=== PATIENT | female | born 1970 | race Two or more races ===

== ENCOUNTER 2017-11-18 13:20 | Emergency (ER) | payer OTHER ==
[2017-11-18 15:28] LABS: ABS Basophils 0 10^3/ul (0-0.2); ABS Eosinophils 0.1 10^3/ul (0-0.6); ABS Lymphocytes 1.9 10^3/ul (1.0-4.8); ABS Monocytes 0.3 10^3/ul (0-0.8); ABS Neutrophils 2.9 10^3/ul (1.5-7.7); ABS Nucleated RBC 0 10^3/ul; Hematocrit 40 % (35-47); Hemoglobin 13.2 g/dl (12.0-16.0); Lymphocyte % 37.1 % (25-47); Mean Corpuscular HGB Conc 33 g/dl (31-36); Mean Corpuscular Hemoglobin 30 pg (27-31); Mean Corpuscular Volume 90 fL (80-97); Mean Platelet Volume 8 um3 (7.4-10.4); Nucleated Red Blood Cells % 0; Platelet Count 224 10^3/ul (150-450); Red Cell Distribution Width 14 % (10.5-15); White Blood Count 5.2 10^3/ul (3.5-10.8)
--- NOTE | 2017-11-18 15:28 | RAD ---
HISTORY: Chest pain COMPARISONS: July 03, 2014 VIEWS: 4: Frontal dual-energy and lateral views of the chest. FINDINGS: CARDIOMEDIASTINAL SILHOUETTE: The cardiomediastinal silhouette is normal. KAYLYN: The kaylyn are normal. PLEURA: The costophrenic angles are sharp. No pleural abnormalities are noted. LUNG PARENCHYMA: The lungs are clear. ABDOMEN: The upper abdomen is clear. There is no subphrenic gas. BONES AND SOFT TISSUES: No bone or soft tissue abnormalities are noted. OTHER: None. IMPRESSION: NO ACTIVE CARDIOPULMONARY DISEASE.
[2017-11-18 15:44] LABS: EGFR Non-African American 107.2 (>60)
[2017-11-18 17:03] VITALS: BP 136/69
--- NOTE | 2017-11-25 09:20 | ED ---
Headache - HPI Summary HPI Summary: Patient presents to the ED with a multitude of complaints. She endorses headache to the right parietal area, unsure when it began and rated a 7 out of 10 in severity. Intermittent, not aggravated by lites are sounds. She also endorses back pain, right knee pain, although denies injury. She states she has had a chest cold for approximately 3 months and endorses cough without production. She was placed on antibiotics twice, doxycycline in July for a chest cold and associated tick bite, but she did not finish the course of antibiotics because of upset stomach side effects. She was also placed on another antibiotic, although she is unsure of the name, and discontinued this medication as it made her start snoring. She states she feels like her throat closes up if she lies flat and when she snores. She denies any allergies. - History Of Current Complaint Chief Complaint: EDHeadache Stated Complaint: HEADACHES Time Seen by Provider: 11/18/17 13:30 Hx Obtained From: Patient Onset/Duration: Gradual Onset Initially Headache Was: Initial Pain Scale(0-10)= Currently Pain Is: Current Pain Scale(0-10)= Timing: Constant Character: Throbbing Aggravating Factor: Nothing Allevating Factors: Nothing Associated Signs And Symptoms: Dizziness - Risk Factors SAH Risk Factors: Negative Meningitis Risk Factors: Negative SDH Risk Factors: Negative Temporal Arteritis Risk Factors: Female - Allergies/Home Medications Allergies/Adverse Reactions: Allergies Allergy/AdvReac Type Severity Reaction Status Date / Time No Known Allergies Allergy Verified 11/18/17 13:24 PMH/Surg Hx/FS Hx/Imm Hx Previously Healthy: Yes Endocrine/Hematology History: Denies: Hx Diabetes, Hx Anemia Cardiovascular History: Reports: Hx Angina Denies: Hx Congestive Heart Failure, Hx Hypertension, Hx Pacemaker/ICD Respiratory History: Denies: Hx Asthma GI History: Denies: Hx Jaundice History: Denies: Hx Renal Disease Sensory History: Denies: Hx Hearing Aid Neurological History: Denies: Other Neuro Impairments/Disorders Psychiatric History: Denies: Hx Panic Disorder - Cancer History Hx Chemotherapy: No Hx Radiation Therapy: No - Surgical History Surgery Procedure, Year, and Place: c section, [facility], [facility] Infectious Disease History: No Infectious Disease History: Denies: Traveled Outside the [place] in Last 30 Days - Social History Occupation: Employed Full-time Lives: With Family Alcohol Use: Occasionally Hx Substance Use: No Substance Use Type: Reports: None Hx Tobacco Use: No Smoking Status (MU): Never Smoked Tobacco Do You Chew or Dip Tobacco: No Review of Systems Negative: Fever, Chills, Fatigue, Skin Diaphoresis Negative: Photophobia, Blurred Vision Cardiovascular: Negative Respiratory: Negative Genitourinary: Negative Positive: no symptoms reported, see HPI Positive: Arthralgia - 8 knee Positive: Headache All Other Systems Reviewed And Are Negative: Yes Physical Exam Triage Information Reviewed: Yes Vital Signs On Initial Exam: Initial Vitals Temp Pulse Resp BP Pulse Ox 97.3 F 60 16 120/42 97 11/18/17 13:24 11/18/17 13:24 11/18/17 13:24 11/18/17 13:24 11/18/17 13:24 Vital Signs Reviewed: Yes Appearance: Positive: Well-Appearing, No Pain Distress, Well-Nourished Skin: Positive: Warm, Skin Color Reflects Adequate Perfusion Head/Face: Positive: Normal Head/Face Inspection Eyes: Positive: EOMI, JUAN, Conjunctiva Clear Neck: Positive: Supple, No Lymphadenopathy Respiratory/Lung Sounds: Positive: Clear to Auscultation, Breath Sounds Present Cardiovascular: Positive: RRR, Pulses are Symmetrical in both Upper and Lower Extremities Musculoskeletal: Positive: Normal, Strength/ROM Intact Neurological: Positive: Speech Normal Psychiatric: Positive: Normal, Affect/Mood Appropriate AVPU Assessment: Alert Diagnostics - Vital Signs Vital Signs Temp Pulse Resp BP Pulse Ox 11/18/17 17:02 97.3 F 64 16 136/69 99 11/18/17 16:28 62 15 131/68 99 11/18/17 13:24 97.3 F 60 16 120/42 97 - Laboratory Lab Results: Lab Results 11/18/17 11/18/17 11/18/17 Range/Units 15:19 15:19 15:19 WBC 5.2 (3.5-10.8) 10^3/ul RBC 4.40 (4.0-5.4) 10^6/ul Hgb 13.2 (12.0-16.0) g/dl Hct 40 (35-47) % MCV 90 (80-97) fL MCH 30 (27-31) pg MCHC 33 (31-36) g/dl RDW 14 (10.5-15) % Plt Count 224 (150-450) 10^3/ul MPV 8 (7.4-10.4) um3 Neut % (Auto) 56.3 (38-83) % Lymph % (Auto) 37.1 (25-47) % [place] % (Auto) 5.2 (0-7) % Eos % (Auto) 1.0 (0-6) % Baso % (Auto) 0.4 (0-2) % Absolute Neuts (auto) 2.9 (1.5-7.7) 10^3/ul Absolute Lymphs (auto) 1.9 (1.0-4.8) 10^3/ul Absolute Monos (auto) 0.3 (0-0.8) 10^3/ul Absolute Eos (auto) 0.1 (0-0.6) 10^3/ul Absolute Basos (auto) 0 (0-0.2) 10^3/ul Absolute Nucleated RBC 0 10^3/ul Nucleated RBC % 0 ESR 29 H (0-14) mm/Hr Sodium 138 (133-145) mmol/L Potassium 3.8 (3.5-5.0) mmol/L Chloride 102 (101-111) mmol/L Carbon Dioxide 31 (22-32) mmol/L Anion Gap 5 (2-11) mmol/L BUN 12 (6-24) mg/dL Creatinine 0.60 (0.51-0.95) mg/dL Est GFR ( Amer) 137.8 (>60) Est GFR (Non-Af Amer) 107.2 (>60) BUN/Creatinine Ratio 20.0 (8-20) Glucose 91 (70-100) mg/dL Calcium 9.8 (8.6-10.3) mg/dL Total Bilirubin 0.30 (0.2-1.0) mg/dL AST 27 (13-39) U/L ALT 41 (7-52) U/L Alkaline Phosphatase 58 (34-104) U/L Troponin I 0.00 (<0.04) ng/mL C-Reactive Protein 1.61 (< 5.00) mg/L Total Protein 8.0 (6.4-8.9) g/dL Albumin 4.7 (3.2-5.2) g/dL Globulin 3.3 (2-4) g/dL Albumin/Globulin Ratio 1.4 (1-3) TSH 1.76 (0.34-5.60) mcIU/mL Thyroxine (T4) 8.30 (6.09-12.23) mcg/mL B. burgdorferi (PCR) Negative (Negative) Lyme DNA Comment See comment B.garinii/afzelii PCR Negative (Negative) B. mayonii (PCR) Negative (Negative) Result Diagrams: 11/18/17 15:19 11/18/17 15:19 Lab Statement: Any lab studies that have been ordered have been reviewed, and results considered in the medical decision making process. Headache Course/Dx - Course Course Of Treatment: Patient arrives with a multitude of complaints. Chest x- ray obtained due to chest cold recently, this shows no active cardiopulmonary findings. I did not obtain x-rays of the knee as there was no injury and I see no effusion, erythema, warmth or other signs of infection. She appears well and vital signs are stable. I have encouraged her to follow up with her PCP regarding her multitude of complaints. Labs obtained which show an elevated ESR , but otherwise normal. She has asked about Lyme disease. I have agreed to test her for this and we will call for any positive results. She is okay with this plan and discharge at this time. - Diagnoses Provider Diagnoses: Headache Discharge - Discharge Plan Condition: Stable Disposition: HOME Referrals: Asaf Lin MD [Medical Doctor] - Asuncion EARL,Bryn Lauren [Medical Doctor] - Michael Kay MD [Medical Doctor] - Gonzales Jang MD [Primary Care Provider] - Additional Instructions: Please follow-up with Dr. Kay for your sleep study and further evaluation of snoring symptoms Please follow-up with Dr. lin for any questions regarding your Tyler's I have given you a referral to infectious disease, Dr. Roland for possible Lyme
== END 2017-11-18 17:02 | disposition home or self-care (01) ==
LOC: ED 13:20
DX: R42 Dizziness and giddiness (principal); R51 Headache
CPT/HCPCS: 36415; 71046; 80053; 84436; 84443; 84484; 85025; 85652; 86140; 87798; 99282

== ENCOUNTER 2017-12-04 09:18 | Emergency (ER) | payer OTHER ==
[2017-12-04 09:44] VITALS: BP 122/65
--- NOTE | 2017-12-04 10:44 | RAD ---
INDICATION: Right knee pain. TECHNIQUE: 4 views of the right knee were obtained. FINDINGS: The bones are in normal alignment. No joint effusion or fracture is seen. Joint spaces appear maintained. IMPRESSION: NEGATIVE EXAM.
--- NOTE | 2017-12-04 11:25 | UC ---
Joe Gabriel Jennifer, scribed for Matt Sr MD on 12/04/17 at 1102 . Lower Extremity/Ankle HPI - HPI Summary HPI Summary: In Room:The patient is a 47 year old female who complains of knee pain for the past 13 months that worsened yesterday. The patient is diagnosed with osteoarthritis. She states that it always hurts to walk but yesterday, the pain extended from the back to the front so that it now wraps around the entire right knee. She states sitting alleviates the pain but standing or walking aggravates it. The patient additionally reports that she has recently been feeling pressure in her chest, like something is stuck in her throat, continuous lightheadedness or fogginess, difficulty understanding people, difficulty sleeping, and a heavy discharge that was yellow-green. The patient was taking antibiotics for her Lyme disease and reports she previously had heavy discharge when she was on antibiotics. She denies cough, nausea, vomiting , diarrhea, and rash. Note: Vital signs stable. Has knee pain for 13 months. Diagnosed with osteoarthritis. Reports of worsening pain yesterday. 8/10 pain. The patient is on Synthroid, Elavil, and Meloxicam for pain. Visit history non-contributory except as previously noted. Nurse Note: chronic right knee pain flared yesterday unable to get pain under control - History of Current Complaint Chief Complaint: UCLowerExtremity Stated Complaint: KNEE PAIN Time Seen by Provider: 12/04/17 10:12 Hx Obtained From: Patient Hx Last Menstrual Period: iud Onset/Duration: Gradual Onset, Worse Since - yesterday, Other - 13 months Severity Initially: Severe Severity Currently: Severe Pain Intensity: 9 Pain Scale Used: 0-10 Numeric Aggravating Factor(s): Standing, Ambulation Alleviating Factor(s): Rest Able to Bear Weight: No - Allergies/Home Medications Allergies/Adverse Reactions: Allergies Allergy/AdvReac Type Severity Reaction Status Date / Time No Known Allergies Allergy Verified 12/04/17 09:25 Home Medications: Home Medications Amitriptyline TAB* [Elavil TAB*] 10 mg PO DAILY WITH MEAL 12/04/17 [History Confirmed 12/04/17] Meloxicam 7.5 mg PO DAILY 12/04/17 [History Confirmed 12/04/17] PMH/Surg Hx/FS Hx/Imm Hx Previously Healthy: No - Tyler, Sjogren's, Lyme disease - Surgical History Surgical History: Yes Surgery Procedure, Year, and Place: c section, [place], [facility], [facility]RO[facility] REMOVED FROM RT BREAST IN TWENTIES - Family History Known Family History: Positive: Other - Osteopenia - mother - Social History Occupation: Employed Full-time Alcohol Use: Occasionally Substance Use Type: None Smoking Status (MU): Never Smoked Tobacco Review of Systems Skin: Negative - rash Respiratory: Negative - Cough Gastrointestinal: Negative - Nausea, vomiting, diarrhea Genitourinary: Vaginal/Penile Discharge Musculoskeletal: Other: - Right knee pain Neurological: Other - lightheadedness, "fogginess", difficulty understanding people, difficulty sleeping All Other Systems Reviewed And Are Negative: Yes Physical Exam - Summary Physical Exam Summary: Appearance: The patient is well-appearing, is in no pain distress, and is well- nourished. Eyes: Conjunctiva are clear. ENT: The hearing is grossly normal, the pharynx is normal, and the TMs are normal. There is no muffled or hoarse voice. Neck: The neck is supple and there is no lymphadenopathy. Respiratory: The chest is nontender. The lungs are clear, there are normal breath sounds, and there is no respiratory distress. Cardiovascular: Heart is regular rate and rhythm. There is no murmur. Abdomen: The abdomen is soft and nontender. There is no organomegaly. Bowel sounds: present Musculoskeletal: EXAMINATION OF THE RIGHT KNEE. TENDERNESS OVER DISTAL MEDIAL COLLATERAL LIGAMENT. MILD SWELLING OF THAT AREA. QUADRICEPS IS NONTENDER, INSERTION OF QUADRICEP IS NONTENDER. NEGATIVE ANTERIOR DRAWER SIGN. GOOD STRENGTH. Neurological: The patient is alert. Psychological: The patient displays age appropriate behavior Skin: Negative for rashes. Triage Information Reviewed: Yes Vital Signs: Initial Vital Signs Temp 98 F 12/04/17 09:42 Pulse 79 12/04/17 09:42 Resp 16 12/04/17 09:42 BP 122/65 12/04/17 09:42 Pulse Ox 100 12/04/17 09:42 Vital Signs Reviewed: Yes Diagnostics - Radiology Knee XR Xray Interpretation: No Acute Changes - NEGATIVE EXAM. Dr. Bonilla has reviewed this report. Radiology Interpretation Completed By: Radiologist Lower Extremity Course/Dx - Course Course Of Treatment: The patient is a 47 year old female with exacerbation of chronic pain of the right knee. Pain over the medial collateral ligament; medial collateral ligament sprain. Discussed with patient at length the need to restrict activity and she will try a new analgesia regimen of Acetaminophen and Ibuprofen. She will use an susy wrap and crutches as needed. She will follow up with family physician and/or orthopod. It does not sound as if this is a result of Lyme disease, but that possibility cant be ruled out. Patient is Urgent/ Emergent. BP elevated due to current condition w/o HTN in past medical history. Medications have been included in the original chart and reviewed. - Differential Dx/Diagnosis Provider Diagnoses: Right medial collateral ligement sprain Discharge - Sign-Out/Discharge Documenting (check all that apply): Discharge - Discharge Plan Condition: Stable Disposition: HOME Patient Education Materials: Knee Sprain (ED) Referrals: Gonzales Jang MD [Primary Care Provider] - Additional Instructions: WE DISCUSSED: 1. You have sprained part of your left knee. 2. Use crutches for comfort. 3. Use susy. 4. Change analgesia to: 5. Re check with your doctor for any new swelling, pain, redness or disability. Ibuprofen 400-600mg PLUS acetaminophen 500mg - 1000mg every 8 hours. Maximum is 3 doses a day. If this dosage is required for more than 5 days, you should re- check with your doctor. PLEASE SEEK CARE AT THE EMERGENCY DEPARTMENT IF SYMPTOMS WORSEN OR IF NEW SYMPTOMS DEVELOP. FOLLOW UP WITH YOUR PRIMARY CARE PHYSICIAN. The documentation as recorded by the Joe mckenzie Jennifer accurately reflects the service I personally performed and the decisions made by , Matt Sr MD.
== END 2017-12-04 11:30 | disposition home or self-care (01) ==
LOC: UCEAST 09:18
DX: S83.411A Sprain of medial collateral ligament of right knee, initial encounter (principal); X58.XXXA Exposure to other specified factors, initial encounter
CPT/HCPCS: 99212; G0463